=== PATIENT | female | born 1980 ===

== ENCOUNTER 2016-08-03 11:45 | Emergency (ER) | payer OTHER ==
[2016-08-03 12:20] VITALS: BMI 38.7
[2016-08-03] MEDS: Lactated Ringer's 1,000 ML IV SCH ×4 (14:45→15:34)
[2016-08-03 15:30] LABS: BASO % 0.2 % (0.0-2.0); EOS # 0.1 K/uL (0.0-0.7); EOS % 0.6 % (0.0-4.0); HEMATOCRIT 33.5 % (34.0-47.0); LYMPH # 1.1 K/uL (1.0-4.3); MEAN CELL VOLUME 89.4 fl (81.0-99.0); MEAN CORPUSCULAR HEMOGLOBIN 28.9 pg (27.0-31.0); MEAN CORPUSCULAR HGB CONC 32.3 g/dL (33.0-37.0); MEAN PLATELET VOLUME 9.1 fl (7.2-11.7); MONO # 0.7 K/uL (0.0-0.8); MONO % 8.5 % (0.0-10.0); NEUT # 6.1 K/uL (1.8-7.0); NEUT % 76.7 % (50.0-75.0); RED CELL DISTRIBUTION WIDTH 14.4 % (11.5-14.5)
[2016-08-03 15:38] LABS: RBC URINE 2 /hpf (0-3); URINE BACTERIA RARE (<OCC); URINE BILIRUBIN NEGATIVE (NEGATIVE); URINE BLOOD NEGATIVE (NEGATIVE); URINE COLOR YELLOW (YELLOW); URINE GLUCOSE (UA) NEG (Normal); URINE KETONE NEGATIVE (NEGATIVE); URINE LEUKOCYTE ESTERASE NEG Leu/uL (Negative); URINE PROTEIN NEGATIVE (NEGATIVE); URINE UROBILINOGEN 0.2-1.0 mg/dL (0.2-1.0); WBC URINE 2 /hpf (0-5)
[2016-08-03 17:09] LABS: ALB/GLOB RATIO 1.1 (1.0-2.1); ALKALINE PHOSPHATASE 91 U/L (38-126); ALT/SGPT 32 U/L (9-52); AST/SGOT 21 U/L (14-36); BILIRUBIN,TOTAL 0.2 mg/dl (0.2-1.3); BLOOD UREA NITROGEN 7 mg/dl (7-17); CALCIUM 8.8 mg/dL (8.4-10.2); CARBON DIOXIDE 23 mmol/L (22-30); CHLORIDE 103 mmol/L (98-107); GFR AFRICAN-AMERICAN > 60; GLUCOSE,RANDOM 75 mg/dL (65-105); POTASSIUM 3.5 MMOL/L (3.6-5.0); SODIUM 135 mmol/l (132-148); TOTAL PROTEIN 6.4 G/DL (6.3-8.2)
== END 2016-08-03 16:15 | disposition home or self-care (01) ==
LOC: H.EROB2 11:45
DX: O26.92 Pregnancy related conditions, unspecified, second trimester (principal); R51 Headache; O21.9 Vomiting of pregnancy, unspecified; Z3A.24 24 weeks gestation of pregnancy

== ENCOUNTER 2016-08-06 20:47 | Emergency (ER) | payer OTHER ==
[2016-08-06 22:08] LABS: RBC URINE 3 /hpf (0-3); URINE BACTERIA RARE (<OCC); URINE BILIRUBIN NEGATIVE (NEGATIVE); URINE BLOOD NEGATIVE (NEGATIVE); URINE COLOR YELLOW (YELLOW); URINE GLUCOSE (UA) NEG (Normal); URINE KETONE NEGATIVE (NEGATIVE); URINE LEUKOCYTE ESTERASE NEG Leu/uL (Negative); URINE PROTEIN NEGATIVE (NEGATIVE); URINE UROBILINOGEN 0.2-1.0 mg/dL (0.2-1.0); WBC URINE 1 /hpf (0-5)
--- NOTE | 2016-08-07 05:58 | OBHP ---
Datetime: 08/06/2016 05:48 IP Adm Impression: , intrauterine ; No Active Labor; Intact Membranes IP Admit Plan: Observation/Evaluation Admit Comment, IP Provider: 36yo at 24.1wks GA c/o pelvic cramping and pressure. No ctxs, v b, lof. Pt reports good FM. Pt denies any dysuria, F/C, N/V, D/C. records reviewed. PMHx chronic HTN PSHx denies Meds PNV, Nifedipine NKDA OBHx x 4 SocHx No tob, etoh, drugs A -- 24wks GA with pelvic discomfort. No evidence of PTL at this time. Both MWB/FWB reassuring a t this time P -- Will continue observation as per pt's PMD. Pelvic Type - PN: Adequate Extremities - PN: Normal Abdomen - PN: Normal Back - PN: Normal Breast - PN: Normal Lungs - PN: Normal Heart - PN: Normal Thyroid - PN: Normal Neurologic - PN: Normal HEENT - PN: Normal General - PN: Normal FHR - Baseline A Provider: 150s Membranes, Provider: Intact Contraction Comments Provider: none Comments, ACOG Physical Exam: Cervix Long, Closed, Posterior No blood, fluid, discharge IP Hx Assessment: The History has been Reviewed and is Current EGA AdmitDate IP: 24.0 Vital Signs Provider: Reviewed; Within Normal Limits IP Chief Complaint: Maternal discomfort NICHD Variability Prov Fetus A: Moderate 6-25bpm NICHD Decel Fetus A IP Provider: None Dilatation, Provider: 0 Effacement, Provider: 0 Station, Provider: -4 Genitourinary Exam: Normal DTRs - PN: Normal Datetime: 08/03/2016 12:25 IP Chief Complaint Other: migraine headache NICHD Accel Fetus A IP Provider: 15X15 FHR Category Provider Fetus A: Category I
--- NOTE | 2016-08-07 11:51 | OBPN ---
Datetime: 08/06/2016 05:48 IP Progress Impression Other: crampy pains IP Progress Plan: Discharge Membranes, Provider: Intact Contraction Comments Provider: none FHR - Baseline A Provider: 150s Gestation - Est Wks by US: 24 wks 1 d IP Progress Note Comment: pt has been in [facility] since last night with c/o crampy pains Now sleeping co nfortable denies any exacerbation of cramps no UC denies bleeding or ROM and admits to good FM. U/A sent yesterday neg results and not able to sent FFN since examined less than 24 hrs. SVE no changes still closed long and post no effacement and no sign of bleeding or bloody discharge D/C home as per attending and pt given instructions to bed and pelvic rest complete and increase po fluids and to co ntact Dr Nolasco office in am for follow up with him this week She understands and agreed. Instru ctions given Vital Signs Provider: Reviewed; Within Normal Limits NICHD Variability Prov Fetus A: Moderate 6-25bpm Dilatation, Provider: 0 Effacement, Provider: 0 Station, Provider: -4 NICHD Decel Fetus A IP Provider: None Datetime: 08/03/2016 12:25 NICHD Accel Fetus A IP Provider: [id number] FHR Category Provider Fetus A: Category I
== END 2016-08-07 12:20 | disposition home or self-care (01) ==
LOC: H.EROB2 20:47
DX: O47.02 False labor before 37 completed weeks of gestation, second trimester (principal); Z3A.24 24 weeks gestation of pregnancy

== ENCOUNTER 2016-09-02 10:45 | Emergency (ER) | payer OTHER ==
[2016-09-02 11:05] VITALS: BMI 41.7
[2016-09-02 11:13] LABS: SQUAMOUS EPITHIAL 1 /hpf (0-5); URINE BACTERIA RARE (<OCC); URINE BILIRUBIN NEGATIVE (NEGATIVE); URINE BLOOD NEGATIVE (NEGATIVE); URINE CLARITY CLEAR (Clear); URINE COLOR YELLOW (YELLOW); URINE GLUCOSE (UA) NEG (Normal); URINE LEUKOCYTE ESTERASE NEG Leu/uL (Negative); URINE NITRATE NEGATIVE (NEGATIVE); URINE PROTEIN NEGATIVE (NEGATIVE); URINE UROBILINOGEN 0.2-1.0 mg/dL (0.2-1.0)
[2016-09-02 12:18] LABS: HEMOGLOBIN 9.3 g/dL (12.0-16.0); MEAN CELL VOLUME 88.3 fl (81.0-99.0); MEAN CORPUSCULAR HEMOGLOBIN 28.7 pg (27.0-31.0); MEAN CORPUSCULAR HGB CONC 32.5 g/dL (33.0-37.0); RBC 3.25 Mil/uL (3.80-5.20); RED CELL DISTRIBUTION WIDTH 14.8 % (11.5-14.5)
[2016-09-02 12:28] LABS: ALB/GLOB RATIO 1.1 (1.0-2.1); ALBUMIN 3.4 g/dL (3.5-5.0); ALT/SGPT 21 U/L (9-52); AST/SGOT 23 U/L (14-36); BLOOD UREA NITROGEN 6 mg/dl (7-17); CALCIUM 8.4 mg/dL (8.4-10.2); GFR AFRICAN-AMERICAN > 60; GFR NON-AFRICAN AMERICAN > 60; URIC ACID 3.3 mg/Dl (2.2-7.5)
== END 2016-09-02 13:11 | disposition home or self-care (01) ==
LOC: H.EROB2 10:45 → H.L&D 10:47 → H.EROB2 13:11
DX: O13.2 Gestational [pregnancy-induced] hypertension without significant proteinuria, second trimester (principal); Z3A.27 27 weeks gestation of pregnancy

== ENCOUNTER 2016-09-04 21:15 | Emergency (ER) | payer OTHER ==
--- NOTE | 2016-09-04 21:25 | OBHP ---
Datetime: 09/02/2016 11:00 IP Adm Impression: , intrauterine ; No Active Labor; Intact Membranes IP Admit Plan: Observation/Evaluation Admit Comment, IP Provider: IUP at 27+w sent from Dr Bridges's office for BP 150/100's. S he c/o occ IQBAL; no visual dist; no pedal edema. No CTX; no VB; No SROM care: CP Dr Bridges - chart rev'ed EDC Nov 24 PMH: denies PSH: denies POBH: x 4 PGYNH HPV/Trichomonas PSo: no smoking EOTH drugs A: IUP at 27w IQBAL ? pre-eclampsia PLAN check UA/pre-eclampsia labs; case diuscssed with Dr Bridges Pelvic Type - PN: Adequate Extremities - PN: Normal Abdomen - PN: Normal Back - PN: Normal Breast - PN: Not Done Lungs - PN: Normal Heart - PN: Normal Thyroid - PN: Normal Neurologic - PN: Normal HEENT - PN: Normal General - PN: Normal FHR - Baseline A Provider: 140 Comments, ACOG Physical Exam: ROS: general: no fatigue/no weakness HEENT: slight IQBAL; no visual dist CV: No CP; No palpitations Resp: no SOB; no cough GI: No N/V/D : no F/U/D MS: no joint pain Pool Provider: Negative IP Hx Assessment: The History has been Reviewed and is Current EGA AdmitDate IP: 27.6 IP Chief Complaint: Signs/Symptoms Gestational HTN NICHD Variability Prov Fetus A: Moderate 6-25bpm NICHD Accel Fetus A IP Provider: 10X10 FHR Category Provider Fetus A: Category I NICHD Decel Fetus A IP Provider: None Genitourinary Exam: Normal DTRs - PN: Normal Datetime: 08/06/2016 05:48 Gestation - Est Wks by US: 24 wks 1 d
[2016-09-04 22:56] LABS: SPECIMEN COMMENT CLEAR
[2016-09-04 23:08] LABS: SQUAMOUS EPITHIAL 1 /hpf (0-5); URINE BACTERIA RARE (<OCC); URINE BILIRUBIN NEGATIVE (NEGATIVE); URINE BLOOD NEGATIVE (NEGATIVE); URINE CLARITY CLEAR (Clear); URINE COLOR YELLOW (YELLOW); URINE GLUCOSE (UA) NEG (Normal); URINE LEUKOCYTE ESTERASE NEG Leu/uL (Negative); URINE NITRATE NEGATIVE (NEGATIVE); URINE PROTEIN NEGATIVE (NEGATIVE); URINE UROBILINOGEN 0.2-1.0 mg/dL (0.2-1.0)
--- NOTE | 2016-09-08 11:24 | OBHP ---
Datetime: 09/04/2016 22:30 IP Adm Impression: , intrauterine ; No Active Labor; Ruptured Membranes IP Admit Plan: Observation/Evaluation Admit Comment, IP Provider: IUP at 27+w c/o lower abd discomfort this evening. Some freq or urination. Discomfort is not regualr. +FM. no VB; No SROM. This past Monday, I saw her for poss lucia vated BP. Today No IQBAL no visual dist care: CP Dr Bridges - chart rev'ed EDC Nov 24 PMH: denies PSH: denies POBH: x 4 PGYNH HPV/Trichomonas PSo: no smoking EOTH drugs A: IUP at 27w Lower abd pain ? PTL PLAN: UA and FFN done Spoek to Dr Bridges. Pelvic Type - PN: Adequate Extremities - PN: Normal Abdomen - PN: Normal Back - PN: Normal Breast - PN: Not Done Lungs - PN: Normal Heart - PN: Normal Thyroid - PN: Normal Neurologic - PN: Normal HEENT - PN: Normal General - PN: Normal FHR - Baseline A Provider: 135 Membranes, Provider: Intact Comments, ACOG Physical Exam: ROS: general: no fatigue/no weakness HEENT: slight IQBAL; no visual dist CV: No CP; No palpitations Resp: no SOB; no cough GI: No N/V/D : no F/U/D MS: no joint pain Pool Provider: Negative IP Hx Assessment: The History has been Reviewed and is Current EGA AdmitDate IP: 28.1 Vital Signs Provider: Within Normal Limits IP Chief Complaint: Uterine contractions NICHD Variability Prov Fetus A: Moderate 6-25bpm NICHD Accel Fetus A IP Provider: 15X15 FHR Category Provider Fetus A: Category I NICHD Decel Fetus A IP Provider: None Dilatation, Provider: 0 Effacement, Provider: 0 Genitourinary Exam: Normal DTRs - PN: Normal
== END 2016-09-05 00:25 | disposition home or self-care (01) ==
LOC: H.EROB2 21:15
DX: O47.02 False labor before 37 completed weeks of gestation, second trimester (principal)

== ENCOUNTER 2016-10-13 12:53 | Emergency (ER) | payer OTHER ==
[2016-10-13 16:18] VITALS: BMI 41.3
[2016-10-13 17:05] LABS: SQUAMOUS EPITHIAL 3 /hpf (0-5); URINE BACTERIA RARE (<OCC); URINE BILIRUBIN NEGATIVE (NEGATIVE); URINE BLOOD NEGATIVE (NEGATIVE); URINE CLARITY SLIGHTY-CLOUDY (Clear); URINE COLOR YELLOW (YELLOW); URINE GLUCOSE (UA) NEG (Normal); URINE LEUKOCYTE ESTERASE NEG Leu/uL (Negative); URINE NITRATE NEGATIVE (NEGATIVE); URINE PROTEIN NEGATIVE (NEGATIVE); URINE UROBILINOGEN 0.2-1.0 mg/dL (0.2-1.0)
[2016-10-13 21:44] VITALS: BP 129/72; PULSE 87; TEMP 98.6
--- NOTE | 2016-10-14 08:45 | OBHP ---
Datetime: 10/13/2016 13:41 IP Adm Impression: , intrauterine ; No Active Labor; Intact Membranes IP Admit Plan: Observation/Evaluation; Discharge home Admit Comment, IP Provider: 36-year-old at 33 weeks and 5 days gestational age transferred to OB ED from PMD's office due to complaints of contractions and found to be 1 cm dilated. Patient ob served at OB ED for multiple hours. At this time, patient without complaints. Patient denies any cont ractions, vaginal bleeding, leakage of fluids. Patient reports good movement. records reviewed. Past medical history none Past surgical history none Medications vitamins No known drug allergies Obstetrical history full-term normal spontaneous vaginal delivery 4 Social history no tobacco, no drugs, no alcohol Physical exam: Refer to physical exam findings Assessment: 36-year-old 004 at 33 weeks gestational age. No evidence of labor at this time. Both maternal well-being and well-being reassuring at this time. Plan: Patient already has follow-up scheduled with primary physician. Discussed plan with patient and al l patient questions answered. Pelvic Type - PN: Adequate Extremities - PN: Normal Abdomen - PN: Normal Back - PN: Normal Breast - PN: Normal Lungs - PN: Normal Heart - PN: Normal Thyroid - PN: Normal Neurologic - PN: Normal HEENT - PN: Normal General - PN: Normal Comments, ACOG Physical Exam: Urinalysis: Negative Pool Provider: Negative IP Hx Assessment: The History has been Reviewed and is Current EGA AdmitDate IP: 33.5 Vital Signs Provider: Reviewed; Within Normal Limits IP Chief Complaint: Uterine contractions Dilatation, Provider: 1 Effacement, Provider: long Station, Provider: high Genitourinary Exam: Normal DTRs - PN: Normal
== END 2016-10-13 17:40 | disposition home or self-care (01) ==
LOC: H.EROB 12:53 → H.EROB2 12:53
DX: O47.03 False labor before 37 completed weeks of gestation, third trimester (principal); Z3A.33 33 weeks gestation of pregnancy

== ENCOUNTER 2016-10-22 04:31 | Inpatient (IN) | payer OTHER ==
[2016-10-22 04:57] VITALS: BMI 43.0
[2016-10-22] MEDS ORDERED: Penicillin G Potassium 5 MU in Sodium Chloride 0.9% 50 ML IV ONE (05:03)
[2016-10-22] MEDS ORDERED: Lidocaine 1% Inj (20ml) ONE (05:08)
[2016-10-22] MEDS ORDERED: Oxytocin 30 units/LR 500ML 60 U/1,000 ML BAG IV ONE (05:08)
[2016-10-22] MEDS: Lactated Ringer's 1,000 ML IV SCH ×2 (05:30→12:45)
[2016-10-22 05:57] LABS: BASO % 0.3 % (0.0-2.0); EOS # 0.1 K/uL (0.0-0.7); EOS % 0.5 % (0.0-4.0); HEMATOCRIT 31.5 % (34.0-47.0); LYMPH # 2.3 K/uL (1.0-4.3); LYMPH % 13.9 % (20.0-40.0); MEAN CELL VOLUME 85.3 fl (81.0-99.0); MEAN CORPUSCULAR HEMOGLOBIN 26.7 pg (27.0-31.0); MEAN CORPUSCULAR HGB CONC 31.3 g/dL (33.0-37.0); MEAN PLATELET VOLUME 8.7 fl (7.2-11.7); MONO % 5.8 % (0.0-10.0); NEUT # 13.2 K/uL (1.8-7.0); NEUT % 79.5 % (50.0-75.0); NRBC % 0.1 % (0.0-0.0); RED CELL DISTRIBUTION WIDTH 16.4 % (11.5-14.5); WHITE BLOOD COUNT 16.6 K/uL (4.8-10.8)
[2016-10-22] MEDS ORDERED: Oxytocin 30 units/LR 500ML 30 U/500 ML BAG IV SCH (09:44)
[2016-10-22 11:30] VITALS: RESP 20; O2SAT 99
[2016-10-22] MEDS ORDERED: Fentanyl/Bupivacaine HCl 250 ML EPI ONE (12:17)
--- NOTE | 2016-10-22 15:46 | OBADHP ---
Datetime: 10/22/2016 05:24 Admit Comment, IP Provider: 36 y/o F , GA 35 wks, [facility] 11/26/16, comes to [facility] for SROM at 3:30am, and pain. denies nausea, vomiting and visual changes. - positive FM, CTX,LOF, no BV PNC: Dr. Bridges PMH: none PSH: D_C POBH: 4 , Allg: none Meds: PNV SH: no alcohol, smoking or drug use ROS: as per HPI VS: 153/87 FHR:150 PE: SROM 50/-2 A/P:: 36 y/o F , GA 35 wks, [facility] 11/26/16, comes to [facility] for SROM at 3:30am, and pain. -Unknown GBS -start PPX GBS -Admit to L_D -initiate labor protocol -GDM, Accu check f/u Case discussed with Dr. Hall and Dr. Bridges --- Sonali Davis, PGY-1 Pelvic Type - PN: Adequate Extremities - PN: Normal Abdomen - PN: Normal Back - PN: Normal Breast - PN: Normal Lungs - PN: Normal Heart - PN: Normal Thyroid - PN: Normal Neurologic - PN: Normal HEENT - PN: Normal General - PN: Normal Presentation-Admit: Vertex FHR - Baseline A Provider: 150 Membranes, Provider: Ruptured Gestation - Est Wks by US: 35.0 Pool Provider: Positive Vital Signs Provider: Reviewed; Within Normal Limits IP Chief Complaint: Suspected ruptured membranes; Maternal discomfort NICHD Variability Prov Fetus A: Moderate 6-25bpm NICHD Accel Fetus A IP Provider: 15X15 FHR Category Provider Fetus A: Category I NICHD Decel Fetus A IP Provider: None Dilatation, Provider: 2 Effacement, Provider: 50 Station, Provider: -2 Genitourinary Exam: Normal DTRs - PN: Normal EGA AdmitDate IP: 35.0 IP Adm Impression: , intrauterine IP Admit Plan: Admit to unit; Initiate labor protocol Datetime: 10/22/2016 05:12 Comments, ACOG Physical Exam: GBS unknown HIV, RPR, HepB nega GDM Datetime: 10/13/2016 13:41 IP Hx Assessment: The History has been Reviewed and is Current Datetime: 08/06/2016 05:48 Contraction Comments Provider: none Datetime: 08/03/2016 12:25 IP Chief Complaint Other: migraine headache
[2016-10-22] MEDS ORDERED: Oxycodone/Acetaminophen 5/325 mg Tab PO PRN (15:52)
--- NOTE | 2016-10-22 15:53 | OBDS ---
MATERNAL INFORMATION Estimated Blood Loss (ml): 200 Maternal Complications: None Provider Comments: delivery of live baby boy 9/9 clear fluid cord with [address] LABOR SUMMARY EDC: 11/26/2016 00:00 LABOR INFORMATION Reason for Induction: Not Applicable Steroids Given: None Reason Steroids Not Administered: Not Applicable MEMBRANES Membranes Rupture Method: Spontaneous Rupture of Membranes: 10/22/2016 03:30 Amniotic Fluid Color: Clear Amniotic Fluid Amount: Moderate Amniotic Fluid Odor: Normal VAGINAL DELIVERY Episiotomy: None Laceration Extension: N/A Laceration Type: None Laceration Repair Note: none Sponge Count Correct: Yes Sharps Count Correct: Yes Count Comment: correct
[2016-10-22] MEDS: Oxycodone/Acetaminophen 5/325 mg Tab PO PRN (21:26)
[2016-10-23 07:20] LABS: BASO % 0.3 % (0.0-2.0); EOS # 0.1 K/uL (0.0-0.7); EOS % 0.8 % (0.0-4.0); HEMATOCRIT 27.1 % (34.0-47.0); LYMPH # 2.3 K/uL (1.0-4.3); LYMPH % 14.6 % (20.0-40.0); MEAN CELL VOLUME 84.2 fl (81.0-99.0); MEAN CORPUSCULAR HEMOGLOBIN 27.1 pg (27.0-31.0); MEAN CORPUSCULAR HGB CONC 32.2 g/dL (33.0-37.0); MEAN PLATELET VOLUME 8.6 fl (7.2-11.7); MONO # 0.9 K/uL (0.0-0.8); MONO % 5.6 % (0.0-10.0); NEUT # 12.5 K/uL (1.8-7.0); NEUT % 78.7 % (50.0-75.0); WHITE BLOOD COUNT 15.9 K/uL (4.8-10.8)
[2016-10-23] MEDS: Prenatal Multivit/Folic Acid/Iron Tab PO SCH (08:01)
[2016-10-23] MEDS: Oxycodone/Acetaminophen 5/325 mg Tab PO PRN ×2 (10:55→23:38)
--- NOTE | 2016-10-23 11:25 | OBPPN ---
Datetime: 10/23/2016 11:19 PP Pain Prov: Within normal limits PP Pain Prov comment: No SOB, chest pains or leg PP Nausea Prov: Denies PP Flatus Prov: Yes PP Nausea Prov comment: Denies dizziness or weakness PP Breasts Prov: Normal PP Lungs Prov: Normal PP Abdomen/Uterus Prov: Abnormal PP Lochia Prov: Normal PP CVA Tenderness Prov: Normal PP Extremities Prov: Normal PP C/S Incision Prov: Not Applicable PP Progress Prov: Normal PP Comments Phys Exam Prov: Breast not engorged. Abd soft ND, fundus firm NT below the umb. Ext ca lf tender not present PP Impression Prov: Normal progression PP Plan Prov: Continue present management PP Progress Note Prov: Start on PO iron and continue PP care
--- NOTE | 2016-10-24 07:27 | OBPPN ---
Datetime: 10/24/2016 07:23 PP Pain Prov: Within normal limits PP Pain Prov comment: No SOB, chest pains or leg pains PP Nausea Prov: Denies PP Flatus Prov: Yes PP Breasts Prov: Normal PP Lungs Prov: Normal PP Abdomen/Uterus Prov: Abnormal PP Lochia Prov: Normal PP CVA Tenderness Prov: Normal PP Extremities Prov: Normal PP C/S Incision Prov: Not Applicable PP Progress Prov: Normal PP Comments Phys Exam Prov: breast NT, not engorged. Abd soft ND, fundus firm below the umb. Ext no calf tenderness PP Impression Prov: Normal progression PP Plan Prov: Discharge PP Progress Note Prov: D/C home with instructions and follow up PMD Continue PNC vit and iron IP PP Procedures: None Vital Signs Provider PP: Reviewed
--- NOTE | 2016-10-24 07:30 | OBDCSUM ---
Datetime: 10/24/2016 07:26 Discharged to, Provider: Home Follow up at, Provider: Dr Woods Disch Instr Activity: Bedrest; May be up to bathroom; May be up for meals; May Shower Disch Instr Diet: Regular Discharge Instructions, Provider: Routine instructions given Discharge Diagnosis, Provider: Labor Discharge Time: 10/24/2016 07:26 Follow up in weeks, Provider: 4-6 wks Disch Referrals: None Contraception discussed, Prov: Yes Disch Activity Restrictions: No exercising; No lifting; No driving; Minimize walking; Minimize stair -climbing; No sexual activity; Nothing in vagina - [employer], tampons, douche Discharge Comment, Provider: Continue PNC vjit and po iron Contraception after Delivery: Undecided
[2016-10-24] MEDS: Oxycodone/Acetaminophen 5/325 mg Tab PO PRN (12:14)
[2016-10-24] MEDS: Prenatal Multivit/Folic Acid/Iron Tab PO SCH (12:16)
[2016-10-24 21:57] VITALS: BP 127/73; PULSE 84; TEMP 98
== END 2016-10-24 17:30 | disposition home or self-care (01) | DRG 372 ==
LOC: H.EROB2 04:31 → H.EROB 04:45 → H.L&D 04:58 → H.EROB2 05:07 → H.OB/GYN 18:00
PROVIDERS: ADMIT Specialist; ATTEND Specialist
PROC: 10E0XZZ Delivery of Products of Conception, External Approach (ICD-10-PCS; principal; 2016-10-22)
PROC: 4A1HXCZ Monitoring of Products of Conception, Cardiac Rate, External Approach (ICD-10-PCS; 2016-10-22)
DX: O60.14X0 Preterm labor third trimester with preterm delivery third trimester, not applicable or unspecified (principal); G43.909 Migraine, unspecified, not intractable, without status migrainosus; Z37.0 Single live birth; Z3A.35 35 weeks gestation of pregnancy; O09.523 Supervision of elderly multigravida, third trimester